=== PATIENT | male | born 1965 | race Two or more races ===

== ENCOUNTER 2024-08-12 10:57 | Emergency (ER) | payer SELFPAY ==
[2024-08-12 10:58] VITALS: BP 204/120; PULSE 102; RESP 17; TEMP 36.8; O2SAT 96
--- NOTE | 2024-08-12 11:30 | EX.ED.DYSGE1 ---
HPI History of Present Illness Chief Complaint: Abd Pain PFSH PFSH Medical History no medical history Home Medications ?Medication ?Instructions ?Recorded ?Last Taken ?Type omeprazole 40 mg capsule,delayed 40 mg PO DAILY #30 caps 08/12/24 Unknown Rx release ondansetron 4 mg disintegrating 4 mg PO Q8H PRN PRN Nausea #10 tabs 08/12/24 Unknown Rx tablet sucralfate 1 gram tablet (Carafate) 1 g PO BID 7 days #14 tabs 08/12/24 Unknown Rx Allergy/AdvReac Type Severity Reaction Status Date / Time No Known Allergies Allergy Verified 08/12/24 11:00 Surgical History no surgical history Social History Smoking Status: Never smoker EXAM Physical Exam Const Vital Signs: 08/12/24 10:58 08/12/24 12:58 08/12/24 14:00 Temperature 98.3 F Temperature Source Temporal Pulse Rate 102 H 63 66 Respiratory Rate 17 16 18 Blood Pressure 204/120 H 187/96 H 195/94 H Blood Pressure Mean 148 126 127 Pulse Ox 96 99 99 Oxygen Delivery Method Room Air Room Air Room Air [facility] [place] [facility] [place] Medical decision making narrative: HISTORY OF PRESENT ILLNESS: 58-year-old male presents with abdominal pain and vomiting. He states he has been experiencing a couple days of right-sided abdominal pain. Notes decreased appetite. Notes no diarrhea or constipation. Denies history abdominal surgery. Notes 1 episode of nonbloody nonbilious vomitus. No history abdominal surgery. REVIEW OF SYSTEMS: Pertinent positives: Abdominal pain and vomiting Pertinent negatives: Vomiting, fever PHYSICAL EXAM: Nursing triage notes reviewed, Vital signs reviewed Constitutional: please see [facility] HENT: MMM Eyes: Pupils equal round and reactive to light, Extraocular muscles intact Neck: No stridor, no JVD, full neck ROM Lungs: Clear to auscultation, No wheezing or rales. No increased work of breathing, no conversational dyspnea, no accessory muscle use, no nasal flaring. No respiratory distress noted Heart: Regular rate and rhythm, No murmurs, No rubs and No gallops, 2+ distal pulses (radial, femoral, posterior tibial) in all extremities Abdomen: Soft, mid to right abdominal tenderness but no Ly sign. No rigidity, rebound or guarding, no obvious peritoneal signs, no palpable pulsatile abdominal masses, no auscultated abdominal bruit : No CVAT Extremities: No edema Neuro: No new focal neurological deficits, cranial nerves II through XII intact, 5/5 strength in all present extremities. Intact sensation to light touch in all present extremities, 2+ reflexes bilateral patella tendons. Skin: No rash or lesions noted MEDICAL DECISION MAKING: Chief Complaint: As per HPI External records reviewed: Reviewed prior imaging studies: Recent advanced imaging of the abdomen and pelvis Factors affecting care: none reported in chart. Patient reports no significant past medical history Social determinants of health: Denies alcohol use History obtained from others: none Consults: none Impression interpretation used. [facility] Narrative: The patient was initially hypertensive with a blood pressure 204/120, afebrile, nontoxic-appearing. Patient was initially tachycardic to 102. Abdominal exam overall benign. Negative Ly sign I considered the following differential diagnosis: AAA, small bowel obstruction, abdominal perforation, appendicitis, pancreatitis, hepatobiliary pathology (acute cholecystitis), mesenteric ischemia, pathology (ie nephrolithiasis, pyelonephritis). I obtained a broad lab and imaging workup to further elucidate the etiology of the patient's complaints. Initially resuscitated patient 1 L normal saline, Zofran and morphine for pain and nausea control. ALL IMAGES (IF OBTAINED) HAVE BEEN PERSONALLY REVIEWED AND INTERPRETED BY MYSELF. CBC with leukocytosis suggestive of system information, noted mild anemia but no thrombocytopenia noted BMP with mild renal insufficiency unclear this is baseline LFTs show no evidence of hepatobiliary pathology. Lipase slightly elevated but not consistent with acute pancreatitis CT scan shows evidence of duodenal ulcer shows no evidence of acute cholecystitis Right upper quadrant ultrasound shows no evidence of acute cholecystitis Upon reevaluation patient abdominal exam remained benign. Vital signs improved with a downtrending blood pressure 195 or 94 and heart rate improved to 66 The synthesis of the patient's history, physical exam, labs are suggest duodenal ulcer. Prescribed PPI. Gave Carafate. Give close GI follow-up. Gave strict return precautions The synthesis of the patient's labs, images suggest likely duodenal ulcer. No sign of perforation or acute cholecystitis or acute surgical emergency. The patient and/or family, caregivers express understanding. The patient and/or family, caregivers agrees with the plan. Shared decision making: I will have a discussion with the patient and or visitors regarding risk/benefits of further testing or admission. They will be made aware of of the risk/benefits inherent in this decision they will be given the opportunity to voice understanding. Total critical care time today provided was at least 0 minutes. This excludes separately billable procedures. Critical care time (if documented) is secondary to the patient having high probability of clinically significant/life threatening deterioration in the patient's condition which required my urgent intervention. Impression: 1. Acute abdominal 2. Duodenal ulcer Dispo: Discharge home This note was generated with [employer] dictation software. It may contain incorrect words, spelling, and punctuation that were not noted in review of the chart prior to signing. Lab Data Labs: Laboratory Results - last 24 hr 08/12/24 11:50 WBC 16.1 H RBC 5.41 Hgb 10.8 L Hct 36.9 L MCV 68.2 L MCH 20.0 L MCHC 29.3 L RDW Std Deviation 46.4 H RDW Coeff of Hardy 19.9 H Plt Count 345 MPV 10.1 Immature Gran % (Auto) 0.400 Neut % (Auto) 83.0 H Lymph % (Auto) 10.0 L [place] % (Auto) 5.7 Eos % (Auto) 0.2 Baso % (Auto) 0.7 Absolute Neuts (auto) 13.4 H Absolute Lymphs (auto) 1.62 Nucleated RBC % 0 Sodium 133 Potassium 3.8 Chloride 97 L Carbon Dioxide 25.3 Anion Gap 11 BUN 18 Creatinine 1.66 H Estim Creat Clear Calc 54.72 Est GFR (MDRD) Non-Af 47 L BUN/Creatinine Ratio 11.0 Glucose 147 H Calcium 9.5 Total Bilirubin 0.25 AST 18 ALT 5 Alkaline Phosphatase 96 Total Protein 8.6 H Albumin 4.2 Globulin 4.4 H Albumin/Globulin Ratio 0.9 Lipase 101 H Radiography Diagnostic Testing: Clinical Impression(s) from Imaging Studies Abdomen/Pelvis CT 08/12/24 12:07 IMPRESSION: 1. Inflammatory changes centered on the duodenal bulb compatible with peptic ulcer disease, including a tiny 1.3 cm suspected contained perforation. Given prominent associated wall thickening and mild regional lymphadenopathy, recommend clinical follow-up to ensure resolution and no underlying duodenal lesion. This would optimally be evaluated endoscopically. 2. Mild hyperenhancement of the mitchell of the CBD in the region of the above inflammation, potentially reactive. Correlate for clinical evidence of cholangitis. Additionally, recommend correlation with serum lipase as inflammatory changes thought to be centered on the duodenum abut the pancreatic head/uncinate process. 3. Additional description as above. Reading Location: [id number] Gallbladder Ultrasound 08/12/24 12:52 IMPRESSION: Mild enlargement of the liver measuring 18.1 cm. Minimally prominent common bile duct measuring 6.6 mm. Reading Location: [facility] Discharge Plan Triage Chief Complaint: Abd Pain ED Provider: Fredy Murguia Dx/Rx/DC Orders Clinical Impression: Duodenal ulcer Instructions: ED Peptic Ulcer Prescriptions: New omeprazole 40 mg capsule,delayed release(DR/EC) 40 mg PO DAILY Qty: 30 0RF sucralfate [Carafate] 1 gram tablet 1 g PO BID 7 Days Qty: 14 0RF ondansetron 4 mg tablet,disintegrating 4 mg PO Q8H PRN PRN (Reason: Nausea) Qty: 10 0RF Primary Care Provider: Care Physician,No Primary Referrals: Fabian Pickett DO [Med Staff - Active Staff] - Activity Restrictions/Additional Instructions: Thank you for trusting us with your care today! Your labs images were consistent with a duodenal ulcer. This is treated with acid reduction in your stomach in the form of omeprazole. I also prescribe Carafate for symptomatic relief. Prescribe Zofran for nausea and vomiting control. Please take Tylenol (2 pills, 650 mg) as needed for additional pain control Please return to the emergency department if your symptoms change or worsen. Please follow with Gastroenterology (Dr. Pickett) for further outpatient evaluation and management. Print Language: Aaron Disposition Disposition: Home, Self Care Discharge Date/Time: 08/12/24 15:56
[2024-08-12] MEDS: 0.9% Normal Saline (1000mL) 1,000 ML 999 ML IV (11:52)
[2024-08-12] MEDS: Morphine 4 MG/ML Syringe IV (11:52)
[2024-08-12] MEDS: Ondansetron 4 MG/2 ML Vial IV (11:52)
[2024-08-12 11:55] LABS: Absolute Lymphocyte Count 1.62 X10^3/uL (0.83-4.51); Absolute Neutrophil Count 13.4 X10^3/uL (2.0-7.7); Basophil# 0.11 X10^3/uL; Basophil% 0.7 % (0-1); Eosinophil# 0.03 X10^3/uL; Eosinophils% 0.2 % (0-5); Hematocrit 36.9 % (40-54); Hemoglobin 10.8 g/dL (13.0-16.5); Lymphocyte # 1.62 X10^3/ul (0.83-4.51); Mean Corp Hgb Conc 29.3 g/dL (32-36); Mean Corpuscular Volume 68.2 fL (80-94); Mean Platelet Vol. 10.1 fl (6.2-12.0); Monocyte# 0.92 X10^3/uL; Monocyte% 5.7 % (0-10); NRBC Flagged by Analyzer 0 % (0-5); Neutrophil # 13.38 X10^3/uL (2.7-7.7); Platelet Count 345 K/mm3 (150-450); RBC Distribution Width CV 19.9 % (11.6-14.6); RBC Distribution Width SD 46.4 fl (35.1-43.9); Red Blood Count 5.41 M/mm3 (4.6-6.2); White Blood Count 16.1 K/mm3 (4.4-11.0)
[2024-08-12 11:59] VITALS: BMI 34.6
--- NOTE | 2024-08-12 12:07 | CT_ITS ---
PROCEDURE: ABDOMEN/PELVIS W IV CONT ONLY 08/12/2024 REASON FOR EXAM: ABDOMINAL PAIN, VOMITING TECHNIQUE: CT abdomen and pelvis was performed with IV contrast. Multiplanar reformats were generated. PATIENT PREPARATION: Per protocol ORAL CONTRAST TYPE: None. CONTRAST: Isovue-300 VOLUME: 100mL One or more dose reduction techniques were used (e.g., Automated exposure control, adjustment of the mA and/or kV according to patient size, use of iterative reconstruction technique. RADIATION DOSE SUMMARY: CTDlvol: 17.34 mGy DLP: 1011.76 mGycm COMPARISON: None. COMPARISON: None. FINDINGS: Lung bases: Minimal likely atelectasis/scarring. Borderline cardiomegaly. Liver: Unremarkable. Spleen: Unremarkable. Gallbladder/biliary: Mild hyperenhancement of the mitchell of the CBD. No visible cholelithiasis or biliary dilatation. Pancreas: Mild stranding along the pancreatic head/uncinate process, potentially reactive to the below. No ductal dilatation or focal fluid collection.. Adrenals: Unremarkable. Kidneys: Multifocal cortical scarring, greater on the left with asymmetric left renal atrophy. Small cyst on the left. Bowel: Inflammatory changes centered on proximal duodenum with associated wall thickening, hyperemia and adjacent stranding. There is a focal outpouching suggested arising from the duodenal bulb just beyond the pylorus projecting medially and posteriorly measuring roughly 1.3 cm. This is most evident on coronal and sagittal reformat with prominent stranding extending into the luis hepatis and surrounding the pancreatic head/uncinate process as above. Normal caliber appendix. Lymph nodes: Mildly enlarged lymph nodes up to 13 mm short axis along the pancreatic head/uncinate process and proximal duodenum. Vasculature: Unremarkable. Peritoneum: As above. Bladder: Unremarkable. Reproductive Organs: Unremarkable. Body Wall: Tiny fat containing umbilical hernia.. Bones: Multilevel spondylosis and findings suggestive of possible early diffuse idiopathic skeletal hyperostosis along the lower thoracic spine. Trace lumbar levoscoliosis may be positional. CT/Abdomen/Pelvis W IV Cont ONLY IMPRESSION: 1. Inflammatory changes centered on the duodenal bulb compatible with peptic ul cer disease, including a tiny 1.3 cm suspected contained perforation. Given prominent associated wall thickening and mild reg ional lymphadenopathy, recommend clinical follow-up to ensure resolution and no underlying duodenal lesion. This would o ptimally be evaluated endoscopically. 2. Mild hyperenhancement of the mitchell of the CBD in the region of the above inf lammation, potentially reactive. Correlate for clinical evidence of cholangitis. Additionally, recommend correlation with ser um lipase as inflammatory changes thought to be centered on the duodenum abut the pancreatic head/uncinate process. 3. Additional description as above. Reading Location: [id number]
--- NOTE | 2024-08-12 12:52 | US_ITS ---
PROCEDURE: GALLBLADDER REASON FOR EXAM: RUQ TTP COMPARISON: Comparison is made with prior CT scan done earlier in the day. FINDINGS: Liver: Mildly enlarged measuring 18.1 cm. Gallbladder: No stones, sludge, wall thickening or tenderness. Common bile duct: Normal measuring 6.6 mm.. Pancreas: Visualized portions are sonographically unremarkable. Visualized portions of the right kidney are unremarkable. No right upper quadrant ascites. US/Gallbladder IMPRESSION: Mild enlargement of the liver measuring 18.1 cm. Minimally prominent common bile duct measuring 6.6 mm. Reading Location: [place] [id number]
[2024-08-12 12:54] LABS: ALB/GLOB Ratio 0.9 RATIO (0.9-2.4); AST(SGOT) 18 U/L (<=37); Alanine Aminotransfer ALT/SGPT 5 U/L (<=46); Albumin, Serum 4.2 g/dL (3.5-5.0); Alkaline Phosphatase 96 U/L (40-129); Anion Gap 11 (5-15); BUN 18 mg/dL (4-19); Calcium,Total 9.5 mg/dL (7.6-11.0); Carbon Dioxide 25.3 mmol/L (21.0-32.0); Chloride 97 mmol/L (98-108); Creatinine, Serum 1.66 mg/dL (0.70-1.20); EST Glomerular Filtration Rate 47 (>60); Estimated Creatinine Clearance 54.72 ml/min (50-250); Globulin 4.4 g/dL (2.2-4.2); Glucose 147 mg/dL (70-99); Lipase 101 U/L (13-75); Potassium 3.8 mmol/L (3.3-5.1); Protein, Total 8.6 g/dL (5.9-8.4); Sodium Level 133 mmol/L (133-145); Total Bilirubin 0.25 mg/dL (0.00-1.30)
[2024-08-12 12:58] VITALS: BP 187/96; PULSE 63; RESP 16; O2SAT 99
[2024-08-12 14:00] VITALS: BP 195/94; PULSE 66; RESP 18; O2SAT 99
[2024-08-12] MEDS: Sucralfate 1 GM Tablet PO (15:54)
== END 2024-08-12 15:56 | disposition home or self-care (01) ==
PROVIDERS: Emergency Provider Emergency Medicine; Visit Provider Emergency Medicine
DX: R10.9 Unspecified abdominal pain (principal); K26.9 Duodenal ulcer, unspecified as acute or chronic, without hemorrhage or perforation
CPT/HCPCS: 74177; 76705; 80053; 83690; 85025; 96361; 96374; 96375; 99284; Q9967; A4216; J2405